=== PATIENT | male | born 1990 | race American Indian/Alaskan Native ===

== ENCOUNTER 2020-08-08 23:42 | Emergency (ER) | payer SELFPAY ==
[2020-08-08] MEDS ORDERED: ONDANSETRON 4 MG ODT TAB PO ONE (23:48)
[2020-08-09 00:39] LABS: Hemoglobin 16.3 gm/dl (11.8-15.2); Mean Corpuscular HGB Conc 34 % (32-34); Mean Corpuscular Volume 89 fl (84-94); Platelet Count 268 K/mm3 (140-440); Red Blood Count 5.43 M/mm3 (3.65-5.03); Red Cell Distribution Width 13.4 % (13.2-15.2)
[2020-08-09 00:55] LABS: Alanine Aminotransferase 20 units/L (7-56); Albumin 4.3 g/dL (3.9-5); Blood Urea Nitrogen 13 mg/dL (9-20); Hemolysis Index 2
[2020-08-09 01:05] LABS: BUN/Creatinine Ratio 19
[2020-08-09 03:48] LABS: Platelet Estimate Consistent w Auto; Total Cells Counted 100
[2020-08-09 04:05] VITALS: BP 113/73
== END 2020-08-09 00:10 | disposition left against medical advice (07) ==
LOC: ED 23:42
DX: R11.2 Nausea with vomiting, unspecified (principal); Z53.21 Procedure and treatment not carried out due to patient leaving prior to being seen by health care provider
CPT/HCPCS: 36415; 80053; 82962; 83690; 85007; 85025